=== PATIENT | male | born 2000 | race Two or more races ===

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

== ENCOUNTER 2023-06-21 19:26 | Emergency (ER) | payer MEDICAID ==
[2023-06-21] MEDS ORDERED: cefTRIAXone 1 GM Vial IM ONE (20:00)
[2023-06-21] MEDS ORDERED: Ketorolac 60 MG/2 ML SDV IM ONE (20:01)
[2023-06-21] MEDS ORDERED: Acetaminophen/oxyCODONE 325-5 MG Tab PO ONE (20:03)
[2023-06-21] MEDS ORDERED: cefTRIAXone 1 GM Vial ONE (20:12)
[2023-06-21] MEDS ORDERED: cefTRIAXone 1 GM, Lidocaine 1% 2.1 ML IM ONE ×2 (20:15)
== END 2023-06-21 20:36 | disposition home or self-care (01) ==
LOC: JD.ED 19:26
DX: K02.9 Dental caries, unspecified (principal); Z79.899 Other long term (current) drug therapy
CPT/HCPCS: 96372; 99282; A9270; J0696; J1885; 99283; J3490

== ENCOUNTER 2023-11-05 15:44 | Emergency (ER) | payer MEDICAID ==
[2023-11-05] MEDS ORDERED: Naloxone 2 MG/2 ML Syringe ONE (16:00)
[2023-11-05] MEDS ORDERED: Sodium Bicarbonate 8.4% 50 MEQ/50 ML Syringe ONE ×2 (16:00)
[2023-11-05] MEDS ORDERED: EPINEPHrine 1:10,000 1 MG/10 ML Syringe ONE ×4 (16:00)
[2023-11-05] MEDS ORDERED: Calcium Chloride 10% 1 GM/10 ML Syringe ONE (16:00)
== END 2023-11-05 19:32 | disposition expired ==
LOC: JD.ED 15:44
DX: I46.9 Cardiac arrest, cause unspecified (principal)
CPT/HCPCS: 31500; 36415; 92950; 99291; J0171; J2310; 99285; J3490